=== PATIENT | male | born 2000 | race African-American/Black ===

== ENCOUNTER 2020-11-20 13:25 | Emergency (ER) | payer OTHER ==
[~2020-11-20] VITALS: Ht 190.5 cm; Wt 124.7 kg
== END 2020-11-20 14:43 | disposition home or self-care (01) ==
LOC: FSED 14:11
DX: G47.00 Insomnia, unspecified (principal); F84.0 Autistic disorder
CPT/HCPCS: 99282

== ENCOUNTER 2021-02-17 20:52 | Emergency (ER) | payer OTHER ==
[~2021-02-17] VITALS: Ht 188 cm; Wt 122.9 kg
[2021-02-17] MEDS ORDERED: THERAFLU FLU &1 EAC1 PO (21:08)
[2021-02-17] MEDS ORDERED: AZITHROMYC200 MG/5 M PO (21:08)
[2021-02-17 21:16] VITALS: BP 137/89
== END 2021-02-17 21:16 | disposition home or self-care (01) ==
LOC: FSED 20:56
DX: U07.1 COVID-19 (principal); F84.0 Autistic disorder; Z71.89 Other specified counseling
CPT/HCPCS: 99282